=== PATIENT | male | born 1970 | race Caucasian/White ===

== ENCOUNTER 2016-09-28 07:15 | Inpatient (IN) | payer MEDICAID ==
[2016-10-19] MEDS ORDERED: PROPOFOL/EMULSION 500 MG/50 ML BOTTLE IV ONE ×2 (07:25→10:35)
[2016-10-19] MEDS ORDERED: LIDOCAINE 2% 5 ML SDV ONE (07:26)
[2016-10-19] MEDS ORDERED: ROCURONIUM 50 MG/5 ML VIAL ONE (07:27)
[2016-10-19] MEDS ORDERED: REMIFENTANIL HCL 1 MG VIAL ONE ×2 (07:29→10:35)
[2016-10-19] MEDS ORDERED: BUPIVACAINE/EPI 0.25% 30 ML SDV ONE (07:39)
[2016-10-19] MEDS ORDERED: SKIN ADHESIVE (DERMABOND) 1 EACH TP ONE (07:39)
[2016-10-19] MEDS ORDERED: SURGIFLO MATRIX KIT WITH THROMBIN TP ONE (07:39)
[2016-10-19] MEDS ORDERED: THROMBIN (RECOMBINANT) 5,000 UNIT VIAL TP ONE (07:39)
[2016-10-19] MEDS ORDERED: BACITRACIN 50,000 UNITS/10 ML SYR IRR ONE (07:40)
[2016-10-19] MEDS ORDERED: ONDANSETRON 4 MG/2 ML VIAL ONE (07:43)
[2016-10-19] MEDS ORDERED: CEFAZOLIN 2 GM/DEXTROSE/100 ML BAG IV ONE (07:48)
[2016-10-19] MEDS ORDERED: MAGNESIUM HYDROXIDE 30 ML UDCUP PO PRN (07:49)
[2016-10-19] MEDS ORDERED: POLYETHYLENE GLYCOL 3350 17 GM PKT PO PRN (07:49)
[2016-10-19] MEDS ORDERED: BISACODYL 10 MG SUPP PR PRN (07:49)
[2016-10-19] MEDS ORDERED: LACTULOSE 20 GM/30 ML UDCUP PO PRN (07:49)
[2016-10-19] MEDS ORDERED: ACETAMINOPHEN 325 MG TAB PO PRN (07:49)
[2016-10-19 07:53] LABS: ADD DIFF? NO; ADD MORPH? NO; ADD SCAN? NO; ATYPICAL LYMPHOCYTE FLAG 10 (0-99); FRAGMENT RBC FLAG 0 (0-99); HEMATOCRIT 44.7 % (40.0-51.0); HEMOGLOBIN 15.3 g/dL (13.7-17.5); LEFT SHIFT FLG 0 (0-99); LIPEMIA HEMOLYSIS FLAG 90 (0-99); MEAN CELL HEMOGLOBIN 31.9 pg (27.9-34.1); MEAN CELL HEMOGLOBIN CONCENTR. 34.2 g/dL (32.4-36.7); MEAN CELL VOLUME 93.3 fL (81.5-99.8); MEAN PLATELET VOLUME 9.4 fL (8.7-11.7); PLATELET CLUMPS FLAG 0 (0-99); PLATELET COUNT 195 10^3/uL (150-400); RED BLOOD CELL COUNT 4.79 10^6/uL (4.40-6.38); RED CELL DISTRIBUTION WIDTH 11.6 % (11.5-15.2)
[2016-10-19] MEDS ORDERED: PROPOFOL 200 MG/20 ML VIAL ONE (07:56)
[2016-10-19] MEDS ORDERED: fentaNYL 100 MCG/2 ML INJ ONE ×4 (07:57→12:36)
[2016-10-19] MEDS ORDERED: MIDAZOLAM 2 MG/2 ML VIAL ONE (07:58)
[2016-10-19] MEDS ORDERED: NS W/ 20 KCl/L 1,000 ML IV SCH (08:00)
[2016-10-19 08:06] LABS: ANION GAP 12 mEq/L (8-16); CALCIUM 8.8 mg/dL (8.5-10.4); CARBON DIOXIDE 27 mEq/l (22-31); CHLORIDE 107 mEq/L (97-110); CREATININE 0.7 mg/dL (0.7-1.3); GLOMERULAR FILTRATION RATE > 60; GLUCOSE 91 mg/dL (70-100); INR 1.04 (0.83-1.16); POTASSIUM 3.9 mEq/L (3.5-5.2); PROTIME(PATIENT) 13.5 SEC (12.0-15.0); SODIUM 146 mEq/L (134-144)
[2016-10-19 08:07] LABS: APTT 31.9 SEC (23.0-38.0)
[2016-10-19] MEDS ORDERED: DEXAMETHASONE 4 MG/ML VIAL ONE ×3 (08:14)
[2016-10-19] MEDS ORDERED: FAMOTIDINE 20 MG/NACL 50 ML IV SCH (09:00)
[2016-10-19] MEDS ORDERED: ceFAZolin 2 GM/DEXTROSE 100 ML IV ONE (10:00)
[2016-10-19] MEDS ORDERED: CHLORHEXIDINE GLUC HIBICLENS 118 ML BTL TP ONE (10:00)
[2016-10-19] MEDS ORDERED: DIAZEPAM 10 MG/2 ML SYR ONE (11:08)
--- NOTE | 2016-10-19 11:26 | POSTOPPROG ---
Post Op Note Date of Operation: 10/19/16 Surgeon: Augustin Hdez Chemical Research Engineer: Silas Preciado Anesthesiologist: Dereck Bryant Anesthesia: GET(General Endotracheal) Pre-op Diagnosis: cervical stenosis w/ L sided radiculopathy Post-op Diagnosis: cervical stenosis w/ L sided radiculopathy Procedure: c4-7 ACDF Inf/Abcess present in the surg proc area at time of surgery?: No Depth: Organ Space EBL: 50-100 Drains: Thad Napier
--- NOTE | 2016-10-19 11:31 | NEUSURGPN ---
Date of Surgery: 10/19/16 Post Op Day: 0 Assessment/Plan: Brief Post operative not S: pt appropriately waking up from anesthesia, complaining of neck pain. O: NAD, VSS cnii-xii grossly intact no facial droop MOEx4, weakness noted on left arm triceps/biceps. 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 -CCollar at all times except when eating and showering -Advance diet as tolerated -Dispo: look to dc POD #[address]: No - Physician Discussed Patient with : [facility] Physical Exam - Vitals, I&O, Labs I and O 10/18/16 10/19/16 10/20/16 05:59 05:59 05:59 Weight 77.111 kg Laboratory Results 10/19/16 07:35 10/19/16 07:35 ICD10 Worksheet Patient Problems: Problems Problem Status Diagnosed Mood disorder Acute
[2016-10-19] MEDS ORDERED: HYDROmorphONE/DILAUDID 2 MG/ML SYR ONE (11:45)
--- NOTE | 2016-10-19 12:13 | GOP ---
[f rep st] OPERATIVE REPORT DATE OF OPERATION: 10/19/2016 SURGEON: Augustin Hdez MD NEUROSURGEON: Augustin Hdez MD ALMOND HULLER: Silas Preciado PA-C PREOPERATIVE DIAGNOSIS: Cervical spondylosis with left C6 and C7 radiculopathy. POSTOPERATIVE DIAGNOSIS: Cervical spondylosis with left C6 and C7 radiculopathy. PROCEDURE PERFORMED: 1. C5 to C7 anterior cervical diskectomy and fusion. 2. Use of interbody device at C5-6 and C6-7. 3. Anterior instrumentation, C5 to C7. 4. Use of operative microscope. 5. [place] of local autograft. 6. Use of allograft demineralized bone matrix. 7. Use of intraoperative somatosensory-evoked potential and motor-evoked potential monitoring. FINDINGS: Cervical spondylosis. SPECIMENS: None. INDICATIONS: The patient is a 46-year-old inmate, who presented to clinic with severe atrophy of the biceps and triceps on the left side. MRI of the C-spine showed fairly significant spondylosis at C4 -5, 5-6, and 6-7. We did not think that the C4-5 was symptomatic and, therefore, we aim to treat C5- 6 and C6-7 electively. DESCRIPTION OF PROCEDURE: After informed consent was obtained from the patient, the patient was brou ght to the operating room and was placed in supine position on the operating table. A formal time-ou t was performed identifying the patient by name, medical record number, and date of . Preoperat candace antibiotics were given. An endotracheal tube was placed and general endotracheal anesthesia was smoothly induced. All appropriate monitoring leads were placed for somatosensory-evoked potential an d motor-evoked potential monitoring. The head was then placed in 15 pounds of traction with a chin s trap. A lateral radiograph was performed, confirming the location of the incision over the C6 verteb ral body. The neck was then prepped and draped in the normal sterile fashion. The skin incision was made using a 10 blade, and the subcutaneous tissues were dissected using monopolar electrocautery. The skin was undermined over the platysma muscle and then the platysma was opened in line with its fi bers. We then dissected the medial border of the sternocleidomastoid along the midline structures do wn to the cervical spine in the avascular plane. The prevertebral fascia was stripped from the anter ior surface of the bone and disk space markers were placed to localize the C5-6 and C6-7 disk spaces. At this point, the longus colli muscles were stripped laterally, exposing the uncovertebral joints, and self-retaining retractors were placed at C5-C6. Jenners distraction was placed on the C5-6 disk space. The operative microscope was brought onto the field and a diskectomy was performed using cure ttes and pituitary forceps. As we got to the posterior portion of the disk space, there was a large osteophyte on the left side, which was drilled, and a large free fragment of disk was removed. We th en were able to open the posterior longitudinal ligament, and Kerrison punches were used to completel y decompress the entire disk space posteriorly to the thecal sac. Both foramina were palpated with n erve hooks and when they were felt to be free, the disk space was incised for a 6 mm Medtronic PTC ca ge, which was filled with autograft bone and demineralized bone matrix. This cage was then placed in to the C5-6 disk space and lateral radiographs were performed, confirming good placement. The retrac tion was then moved down to the C6-7 disk space and Jenners distraction was again placed over the C6-7 disk space. Again, a diskectomy was performed at C6-7 and the endplates were decorticated using a h igh-speed drill. We were able to remove the disk all the way back to the posterior longitudinal liga ment, which was opened, and the disk space was again completely decompressed using Kerrison punches a ll the way out into the bilateral foramina. Once it was confirmed that the nerves were completely de compressed, this disk space was again sized for a 6 mm Medtronic PTC cage, which was filled with auto graft and allograft demineralized bone matrix and was placed into the disk space. A lateral radiogra ph confirmed good placement of the cage. The wound was then copiously irrigated using bacitracin irr igation. The anterior spine was then sized for a 37 mm Medtronic Zevo plate, which was secured to ea ch vertebral body using 15 mm screws. A final lateral radiograph was performed, confirming good hard meyer placement and good alignment. The wound was then copiously irrigated using bacitracin irrigatio n. A RAJ drain was placed in the prevertebral space, and the platysma was then closed using interrupt ed 2-0 Vicryl. The deep dermis was closed using interrupted 3-0 Vicryl, and the skin was closed usin g Dermabond. Sterile dressings were placed. The patient was then awakened in the operating room, wa s extubated and was transferred to the PACU in stable condition. There were no operative complicatio ns. I was scrubbed and present for the entire procedure. All somatosensory-evoked potentials and mo tor-evoked potentials that were monitored throughout the case were normal and at baseline at the end the case. DRAINS: Prevertebral RAJ. /[id number]/MODL
[2016-10-19] MEDS: SENNOSIDES/DOCUSATE SODIUM TAB PO SCH ×2 (12:49→21:29)
[2016-10-19] MEDS: HYDROmorphONE/DILAUDID 1 MG/ML SYR IVP PRN ×3 (13:48→16:39)
[2016-10-19] MEDS: ONDANSETRON 4 MG/2 ML VIAL IVP PRN (15:48)
--- NOTE | 2016-10-19 15:51 | DX ---
Intraoperative fluoroscopy History: ACDF July 07, 2016. Comparison: MR cervical spine. Findings: A single intraoperative spot film shows 3 level ACDF at what appears to be C5, C6, and C7. Fluoro time: 16 seconds. Dose: 2.7 mGy. Impression: Intraoperative fluoroscopy as above.
[2016-10-19] MEDS: OXYCODONE/APAP 5/325 TAB PO PRN ×2 (17:33→21:28)
[2016-10-19] MEDS: FAMOTIDINE 20 MG TAB PO SCH (21:29)
[2016-10-19] MEDS: ONDANSETRON DISINTEGRATING 4 MG TAB PO PRN (21:29)
[2016-10-20] MEDS: ONDANSETRON DISINTEGRATING 4 MG TAB PO PRN ×5 (01:44→22:06)
[2016-10-20] MEDS: OXYCODONE/APAP 5/325 TAB PO PRN ×5 (01:44→22:06)
--- NOTE | 2016-10-20 07:35 | NEUSURGPN ---
Date of Surgery: 10/19/16 Post Op Day: 1 Assessment/Plan: Assessment: 46 yo male who is s/p c5-7 ACDF POD #1 Plan: -PT/OT/NETWORK SUPPORT to eval today -ABx ppx for 24 hours -optimize pain control-doing well with current pain medications -hold DVT ppx, likely will not need -post op xrays pending -CCollar at all times except when eating and showering -Advance diet as tolerated -Dispo: look to dc POD #1 -call with any questions or concerns Subjective: Awake and alert. NAD. Eating/drinking and voiding. No f/c/n/v/d. No olivo/cp/ sob/abd or gu complaints. Tolerating the collar fine-no skin issues Objective: NAD/AAO x 3, PERRLA/EOMI no droop cnii-xii grossly intact MOEx4, weakness noted on left arm triceps/biceps sensation to light touch intact Neuro Check Frequency: per routine Urinary Catheter in Place: No Catheter Insertion Date: 10/19/16 - Physician Discussed Patient with : [facility]ty Neurosurgery Physical Exam - Vitals, I&O, Labs I and O 10/19/16 10/20/16 10/21/16 05:59 05:59 05:59 Intake Total 510 50 Output Total 3725 100 Balance -3215 -50 Weight 77.111 kg Intake: Oral (ml) 360 IV Intake (ml) 150 IV Infused (ml) 50 ceFAZolin 1 GM/DEXTROSE 50 50 ml @ 200 mls/hr IV Q8HRS [facility] Rx#:[id number] Output: Urine (ml) 3595 100 Catheter 900 Urinal 2695 100 Estimated Blood Loss (ml) 50 Wound Drainage (ml) 20 Thad Napier 20 Wound Drainage (ml) 60 #1 Neck 60 Other: Intake Quantity Yes Sufficient Number of Voids Urinal 1 Vital Signs Temp Pulse Resp BP Pulse Ox 36.5 C 74 14 130/72 H 95 10/20/16 07:15 10/20/16 07:15 10/20/16 07:15 10/20/16 07:15 10/20/16 07:15 Laboratory Results 10/19/16 07:35 10/19/16 07:35 ICD10 Worksheet Patient Problems: Problems Problem Status Diagnosed Arthrodesis status Acute Cervical stenosis of spine Acute Cervicalgia Acute Mood disorder Acute - ICD10 Problem Qualifiers (1) Cervicalgia (2) Cervical stenosis of spine (3) Arthrodesis status
[2016-10-20] MEDS: FAMOTIDINE 20 MG TAB PO SCH ×2 (08:14→19:53)
[2016-10-20] MEDS: METHOCARBAMOL 750 MG TAB PO PRN ×2 (08:14→17:45)
[2016-10-20] MEDS: SENNOSIDES/DOCUSATE SODIUM TAB PO SCH ×2 (08:16→19:53)
[2016-10-20] MEDS ORDERED: FLU VACC QS 2016-17(3-64YR)/PF 0.5 ML SYR (FLUARIX QUAD) IM ONE ×2 (08:54→16:30)
[2016-10-20] MEDS ORDERED: ENOXAPARIN 40 MG/0.4 ML SYR SC SCH (09:00)
--- NOTE | 2016-10-20 16:46 | DX ---
Cervical spine upright AP and lateral 1535 hours. History: Followup fusion. Findings: Comparison to MRI study from July 07, 2016. Anterior cervical fusion plate along with disk replacement material is now seen from C5 through C7 in good position and alignment. Moderate intervertebral disk space narrowing remains at C4-C5 with circ umferential osteophytes. Mild precervical soft tissue swelling is present as expected. Surgical drain is seen along the right anterior aspect of the cervical spine. Impression: 1. Anterior cervical fusion from C5 to C7 with good alignment. 2. Moderate degenerative disk disease at C4-C5. 3. Precervical soft tissue swelling as expected postoperatively.
[2016-10-20] MEDS: HYDROmorphONE/DILAUDID 1 MG/ML SYR IVP PRN (22:07)
[2016-10-21] VITALS: RESP 16
[2016-10-21] MEDS: DIAZEPAM 10 MG/2 ML SYR IVP PRN ×2 (00:11→08:06)
[2016-10-21] MEDS: HYDROmorphONE/DILAUDID 1 MG/ML SYR IVP PRN ×4 (00:57→12:01)
[2016-10-21] MEDS: ONDANSETRON 4 MG/2 ML VIAL IVP PRN (02:39)
[2016-10-21] MEDS: METHOCARBAMOL 750 MG TAB PO PRN ×2 (04:23→16:50)
[2016-10-21] MEDS: diphenhydrAMINE 25 MG CAP PO PRN ×3 (04:23→14:22)
[2016-10-21] MEDS: ONDANSETRON DISINTEGRATING 4 MG TAB PO PRN (04:23)
[2016-10-21] MEDS: OXYCODONE/APAP 5/325 TAB PO PRN ×4 (04:23→18:02)
[2016-10-21] MEDS: SENNOSIDES/DOCUSATE SODIUM TAB PO SCH (07:58)
[2016-10-21] MEDS: FAMOTIDINE 20 MG TAB PO SCH (07:59)
--- NOTE | 2016-10-21 08:03 | NEUSURGPN ---
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 Swallowing well, continues to have sore throat. No sob, cp. Objective: NAD/AAO x 3, BUE/BLE 5/5 Neck, soft, supple wo induration sensation to light touch intact Catheter Insertion Date: 10/19/16 - Physician Discussed Patient with : Ketty Neurosurgery Physical Exam - Vitals, I&O, Labs I and O 10/20/16 10/21/16 10/22/16 05:59 05:59 05:59 Intake Total 510 1800 Output Total 3725 1842 Balance -3215 -42 Weight 77.111 kg Intake: Oral (ml) 360 1750 IV Intake (ml) 150 IV Infused (ml) 50 ceFAZolin 1 GM/DEXTROSE 50 50 ml @ 200 mls/hr IV Q8HRS [facility] Rx#:[id number] Output: Urine (ml) 3595 1820 Catheter 900 Urinal 2695 1820 Estimated Blood Loss (ml) 50 Wound Drainage (ml) 20 22 Thad Napier 20 22 Wound Drainage (ml) 60 #1 Neck 60 Other: Intake Quantity Yes Sufficient Number of Voids Urinal 1 3 Vital Signs Temp Pulse Resp BP Pulse Ox 36.6 C 69 16 132/81 H 93 10/21/16 07:42 10/21/16 07:42 10/21/16 07:42 10/21/16 07:42 10/21/16 07:42 Laboratory Results 10/19/16 07:35 10/19/16 07:35 ICD10 Worksheet Patient Problems: Problems Problem Status Diagnosed Arthrodesis status Acute Cervical stenosis of spine Acute Cervicalgia Acute Mood disorder Acute
[2016-10-21 15:43] VITALS: BP 150/83; PULSE 82; TEMP 99.4; O2SAT 96
[2016-10-21] MEDS ORDERED: MELATONIN 3 MG TAB PO SCH (21:00)
== END 2016-10-21 18:29 | DRG 473 ==
LOC: F2N 10-19 07:09 → F3N 10-19 13:35
PROVIDERS: ADMIT Neurological Surgery; ATTEND Neurological Surgery
PROC: 4A1004G Monitoring of Central Nervous Electrical Activity, Intraoperative, Open Approach (ICD-10-PCS; principal; 2016-10-19 07:15)
PROC: 0RG20A0 Fusion of 2 or more Cervical Vertebral Joints with Interbody Fusion Device, Anterior Approach, Anterior Column, Open Approach (ICD-10-PCS; principal; 2016-10-19 07:15)
PROC: 8E09XBZ Computer Assisted Procedure of Head and Neck Region (ICD-10-PCS; principal; 2016-10-19 07:15)
PROC: 01N10ZZ Release Cervical Nerve, Open Approach (ICD-10-PCS; principal; 2016-10-19 07:15)
DX: M47.22 Other spondylosis with radiculopathy, cervical region (principal); Z23 Encounter for immunization
CPT/HCPCS: 92526-GN; 92610-GN; 97116-GP; 97161-GP; 97165-GO; 97535-GO; C1713; G0008; J0690; J1100; J1170; J2250; J2405; J2704; J3010